=== PATIENT | male | born 1960 | race Caucasian/White ===

== ENCOUNTER 2016-05-02 22:43 | Emergency (ER) | payer OTHER ==
[2016-05-02 22:49] VITALS: TEMP 97.8; BMI 23.5
[2016-05-02] MEDS ORDERED: MORPHINE 4 MG/ML INJECTION IV ONE (23:00)
[2016-05-02] MEDS ORDERED: HYDROCHLOROTHIAZIDE 25 MG TAB PO ONE ×2 (23:00→23:05)
[2016-05-02] MEDS ORDERED: ONDANSETRON HCL 4 MG/2 ML VIAL IV ONE (23:00)
--- NOTE | 2016-05-02 23:29 | EDPRACDOC ---
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 HE TOOK HIS LAST BLOOD PRESSURE PILL THIS MORNING. DOES NOT HAVE A PCP WHO PRESCRIBES THEM ANY LONGER. Circumstances: Reports: Ran Out of Medication Relevent History of: Reports: Hypertension Hypertension Treatment: Reports: Taking Medication Recent Use of: Reports: None Associated Signs and Symptoms: Reports: Headache. Denies: Chest Pain, Shortness of Breath, Abdominal Pain ED Past Medical History - History Reviewed Yes Nurses notes reviewed and agree except as marked - Patient Medical History Cardiac History: Reports: Hypertension Respiratory History: Denies: Pneumonia GI/ History: Reports: Gastroesophageal Reflux, Ulcer Musculoskeletal History: Reports: Osteoarthritis Psychological History: Denies: Depression Systemic History: Denies: Cancer Surgical History: Reports: Cholecystectomy, Other (Back and foot) - Family Medical History Reports: Hypertension (mom, sister, brother), Cancer (mom- stomach cancer), Cardiac Disorders (dad, brother). Denies: Diabetes, Stroke - Social Medical History Smoking Status: Never smoker Lives In: Home EDM Review of Systems - Review of Systems ROS Negative Except as Marked: Yes All systems reviewed and were negative except as marked Constitutional: negative: Fever Respiratory: negative: Shortness of Breath Cardiovascular: negative: Chest Pain Gastrointestinal: negative: Pain, Vomiting Neurological: Headache - Physical Exam Constitutional: Alert Oriented to: Time, Person, Place Last recorded Vital Signs: Last Vital Signs Temp 97.8 F 05/02/16 22:46 Pulse 65 05/02/16 22:46 Resp 20 05/02/16 22:46 BP 187/115 H 05/02/16 22:46 Pulse Ox 99 05/02/16 22:46 Oxygen Pulse Oxygen Saturation 99 O2 Device Room Air Oxygen Flow Rate Fraction of Inspired Oxygen ( FIO2) - HEENT Head: negative: Deformity, Laceration Eye Exam: negative: Conjunctival Injection, Pale Conjunctiva Oropharynx: negative: Membranes Dry Nose: negative: Congestion, Discharge Neck: negative: Limited ROM - Respiratory/Cardiovascular Respiratory: Normal - CTA. negative: Accessory Muscle Use, Diminished, Tachypnea Cardiovascular: negative: Bradycardia, Tachycardia, Irregular - GI Auscultation: Normal Palpation: Normal Tenderness: Non tender - Musculoskeletal Extremities: Radial Pulse (PALPABLE) - Integumentary Skin: Warm, Dry. negative: Rash - Neurologic Memory Impaired: Normal Motor Function: Normal Mood Description: Anxious, Appropriate Thought: Coherent Perception: Normal - Re-evaluation Re-evaluation 1 Re-evaluation Time: 23:08 SPOKE WITH PATIENT ABOUT DOING LAB WORK AND IMAGING GIVEN LOW SUSPICION OF INJURY FROM ELEVATED BLOOD PRESSURE AFTER RUNNING OUT OF MEDICATIONS. HE WOULD PREFER NOT TO INCUR THE GREATER EXPENSE OF LABS AND IMAGING AT THIS TIME AND WOULD PREFER JUST TO HAVE MEDICATIONS. Decision Time to Discharge: 00:23 - Departure Yes I personally saw and evaluated the patient. Disposition: Home Condition: Stable Final Diagnosis: Hypertension Instructions: Chronic Hypertension (ED) Education/Counseling Given To: Patient Education/Counseling Given Regarding: Diagnosis, Treatment, Prognosis, Follow Up Referrals: None,No Provider [Primary Care Provider] - One Week Pb Gabriel MD [Staff Physician] - Call for Appointment Prescriptions: CloNIDine (Antihypertensive) [Catapres] 0.1 mg PO Q6H PRN #30 tab PRN Reason: HYPERTENSION Hydrochlorothiazide 25 mg PO QAM #30 tab
[2016-05-03 00:26] VITALS: BP 153/83
[2016-05-03 00:33] VITALS: PULSE 77
== END 2016-05-03 00:32 | disposition home or self-care (01) ==
LOC: ED 22:43
DX: I10 Essential (primary) hypertension (principal); R51 Headache; R42 Dizziness and giddiness
CPT/HCPCS: 99284; J3490